=== PATIENT | male | born 1980 | race Two or more races ===

== ENCOUNTER 2024-08-21 10:10 | Day surgery (SDC) | payer MEDICAID, SELFPAY ==
--- NOTE | 2024-08-18 09:13 | EKG_ITS ---
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
[2024-08-18 09:16] VITALS: BMI 35.5
[2024-08-18 09:42] LABS: Collection Type, Urine Clean Catch; Squamous Epithelial Cell,Urine 0 /hpf (0-5)
[2024-08-18 09:54] LABS: Basophils # (Auto) 0.1 Thou/mm3 (0.0-0.2); Basophils % (Auto) 1 % (0-2.5); Eosinophils # (Auto) 0.2 Thou/mm3 (0.0-0.5); Eosinophils % (Auto) 2 % (0-10); Hematocrit 44.7 % (41.0-53.0); Hemoglobin 15.5 g/dL (13.5-16.0); Immature Granulocytes % (Auto) 0 % (0-0); Immature Granulocytes Auto 0.01 Thou/mm3 (0.00-0.00); Lymphocytes # (Auto) 3.5 Thou/mm3 (1.0-4.8); Lymphocytes % (Auto) 46 % (10-50); Mean Corpuscular HGB Conc 34.7 g/dl (31.0-37.0); Mean Corpuscular Hemoglobin 28.8 pg (25.0-35.0); Mean Corpuscular Volume 83 fL (80-100); Monocytes # (Auto) 0.7 Thou/mm3 (0.0-0.8); Monocytes % (Auto) 9 % (0-12); Neutrophils # (Auto) 3.1 Thou/mm3 (1.8-7.7); Neutrophils % (Auto) 42 % (37-80); Nucleated Red Blood Cell % 0 /100 WBC (0); Platelet Count 288 Thou/mm3 (140-440); RDW Standard Deviation 41.8 fL (35.1-43.9); Red Blood Count 5.39 Miln/mm3 (4.50-5.90); White Blood Count 7.5 Thou/mm3 (3.8-10.6)
[2024-08-18 09:59] LABS: Bilirubin,Urine Negative (Negative); Blood,Urine 1+ (Negative); Clarity,Urine Clear (Clear/Hazy); Color,Urine Lt-Yellow (Lt Yel-Yel); Glucose, Urine Negative (Negative); Ketones,Urine Negative (Negative); Leukocyte Esterase,Urine Negative (Negative); Nitrite,Urine Negative (Negative); PH,Urine 5.5 (5.0-7.0); Protein,Urine Negative (Neg - Trace); RBC,Urine 4 /hpf (0-3); Urobilinogen,Urine Negative mg/dL (0.0-1.0); WBC,Urine 1 /hpf (0-5)
[2024-08-18 10:16] LABS: Alanine Aminotransferase 42 U/L (10-49); Albumin, Serum 4.7 gm/dL (3.5-5.0); Albumin/Globulin Ratio 1.8 (1.2-2.2); Alkaline Phosphatase 64 U/L (46-116); Anion Gap 9 (7-16); Aspartate Amino Transferase 26 U/L (0-34); BUN/Creatinine Ratio 15 Ratio (12-20); Bilirubin,Total 0.5 mg/dL (0.3-1.2); Blood Urea Nitrogen 12 mg/dL (9-23); Calcium 9.2 mg/dL (8.3-10.6); Calcium (Corrected) 9.2 mg/dL (8.5-10.1); Carbon Dioxide 28.5 mMol/L (20.0-31.0); Chloride 104 mMol/L (98-107); Creatinine (Component) 0.8 mg/dL (0.6-1.3); Estimated Creatinine Clearance 149.5 mL/min (>60); Globulin 2.6 gm/dL (2.3-3.5); Glucose 107 mg/dL (74-106); Osmolality,Calculated 280 (275-295); Potassium 4.1 mMol/L (3.4-5.1); Sodium 141 mMol/L (136-145); Total Protein 7.3 gm/dL (5.7-8.2); eGFR > 60 See Note
[2024-08-21] VITALS (7 sets, daily range): BP systolic 120–169; BP diastolic 70–100; PULSE 76–102; RESP 14–20; TEMP 36.2–36.6; O2SAT 97–100; BMI 35.4
--- NOTE | 2024-08-21 12:49 | SUR.PHASEI ---
pt received from OR in recovery bay 1. pt obtunded, breathing unlabored on oxymask 8l, oral airway in place. v/s stable. pt dressing to right neck cdi. report received from Jagruti Lee RN.
--- NOTE | 2024-08-21 13:04 | PD.SUROPNT ---
Date of Procedure 08/21/24 Pre Op Diagnosis Large lipoma right occipital region and lipoma right neck. Post Op Diagnosis Same. Procedure 1.excision of large lipoma of the right occipital region. August 21, 2024 2.excision of lipoma right neck. August 21, 2024 Findings There is a large lipoma in the right occipital region measuring about 7 cm there is a below the fascia. This is quite vascular and requires hemostasis with suture ligation. There is another lipoma in the right neck near the sternocleidomastoid and this was superficial to the 11th nerve. XI nerve was protected Procedure Description The patient was interviewed in the preop area and the site and side were marked. Then patient was taken to the operating room and general anesthesia is administered in a satisfactory manner. A timeout procedure is carried out. Patient is positioned in the left side down lateral position scalp and hair is all shaved and prepped and draped in usual manner. Local anesthesia 1% lidocaine with epinephrine is used and at first the occipital region lipoma is removed. Curvilinear transverse incision is made and deepened through the layers of skin and subcutaneous tissue. Incision is extended as needed. There is a large lipoma and this was dissected and removed. The fascia and muscle was involved. There was an occipital artery which was bleeding that required suture ligation. After removal of the lipoma the flaps were examined and there is mild oozing the hemostasis is achieved. After complete hemostasis is achieved the operative field is thoroughly irrigated with saline solution and then the fascia is approximated by through 2-0 Vicryl interrupted sutures. The skin is closed using 2-0 nylon interrupted sutures. Now the attention is diverted to the right neck mass. This was identified by palpation and local anesthesia was infiltrated. The mass is localized. Local anesthesia 1% lidocaine with epinephrine is used. Curvilinear transverse incision is made on the most prominent area of the mass. The mass is removed in its entirety. Appears to be a lipoma. The spinal accessory nerve is noted in the base of the lipoma and this was protected. Hemostasis is achieved. The fascia is approximated by 3-0 Vicryl interrupted sutures skin by 2-0 nylon interrupted sutures. Sterile dressings were applied. Patient tolerated procedure very well and transferred to the recovery room in a satisfactory condition. Anesthesia GETA Drains None. Implants None. Pathology / specimen Other (Lipoma right occipital region and lipoma right neck.) Estimated Blood Loss 10 Condition Stable Disposition PACU Surgeon Toney Victoria MD Surgical Staff Operation Date: 08/21/24 11:00 Case Staff Anesthesiologist: Curt Garcia echocardiography radiology technologist here Senior is a surgical orderly student Luis A RN shake maker
--- NOTE | 2024-08-21 13:14 | SUR.PHASEI ---
pt able to tolerate oral fluids without difficulty swallowing or nausea/vomiting.
[2024-08-21] MEDS: fentaNYL CIT INJ 50 mCg/ML AMP 2ML 25 MCG IVP (13:21)
--- NOTE | 2024-08-21 13:51 | SUR.PHASEII ---
pt awake and alert, breathing unlabored on room air. v/s stable. pt dressing to right neck cdi. pt able to ambulate to wheelchair with steady gait. d/c instructions given with partner Kathie in room, all questions answered. pt d/c via wheelchair with all belongings.
== END 2024-08-21 13:51 | disposition home or self-care (01) ==
PROVIDERS: PCP Physician Assistant; Referring Provider Specialist; Visit Provider Specialist
PROC: (CPT 21012; principal; 2024-08-21 10:45)
DX: D17.0 Benign lipomatous neoplasm of skin and subcutaneous tissue of head, face and neck (principal); Z01.810 Encounter for preprocedural cardiovascular examination
CPT/HCPCS: 21012; 21552; 36415; 80053; 81001; 85025; 85730; 93005; A4217; A4649; J0131; J1100; J2250; J2405; J2704; J3010; J3490; J0665

== ENCOUNTER 2024-11-21 12:10 | Day surgery (SDC) | payer MEDICAID, SELFPAY ==
[2024-11-21] VITALS (11 sets, daily range): BP systolic 129–147; BP diastolic 88–101; PULSE 74–92; RESP 15–24; TEMP 36.4–36.8; O2SAT 92–100; BMI 34.5
[2024-11-21] MEDS: RINGERS LACTATED 1000 ML 1,000 ML 60 ML IV (15:02)
[2024-11-21] MEDS: ONDANSETRON INJ 2 MG/ML INJ 2 ML 4 MG IVP (15:22)
--- NOTE | 2024-11-21 15:51 | SUR.PHASEII ---
1538: Pt received in [facility] via [employer]. Report from Jacqueline BOYD. Pt sleepy. Is arousable then immediately drifts back to sleep. No c/o pain, discomfort.
--- NOTE | 2024-11-21 16:51 | SUR.PHASEII ---
1610: Pt more awake, alert. VS stable. Pt able to remain awake. Resp even, unlabored. VS stable. Denies pain. Sitting up tolerating po fluids with no difficulty swallowing and no n/v. 1635: Pt fully awake, oriented x3. Pt dressed and assisted to transport chair. Ambulation steady. Pt requested girlfriend interpret for him. Both stated understanding of discharge instructions. Pt discharged from [facility] in stable condition.
== END 2024-11-21 16:35 | disposition home or self-care (01) ==
PROVIDERS: PCP Physician Assistant; Referring Provider Specialist; Visit Provider Specialist
PROC: (CPT 43239; principal; 2024-11-21 14:30)
DX: K21.00 Gastro-esophageal reflux disease with esophagitis, without bleeding (principal); K44.9 Diaphragmatic hernia without obstruction or gangrene
CPT/HCPCS: 43235; A4649; J1200; J2250; J2405; J3010; J7120; A9270

== ENCOUNTER 2025-02-19 09:05 | Day surgery (SDC) | payer MEDICAID, SELFPAY ==
[2025-02-13 11:01] VITALS: BMI 35.5
[2025-02-13 11:26] LABS: Collection Type, Urine Clean Catch; Squamous Epithelial Cell,Urine 0 /hpf (0-5)
[2025-02-13 11:47] LABS: Basophils # (Auto) 0.1 Thou/mm3 (0.0-0.2); Basophils % (Auto) 1 % (0-2.5); Eosinophils # (Auto) 0.2 Thou/mm3 (0.0-0.5); Eosinophils % (Auto) 3 % (0-10); Hematocrit 46.1 % (41.0-53.0); Hemoglobin 15.2 g/dL (13.5-16.0); Immature Granulocytes Auto 0.02 Thou/mm3 (0.00-0.00); Lymphocytes # (Auto) 3.7 Thou/mm3 (1.0-4.8); Lymphocytes % (Auto) 46 % (10-50); Mean Corpuscular HGB Conc 33.0 g/dl (31.0-37.0); Mean Corpuscular Hemoglobin 28.4 pg (25.0-35.0); Mean Corpuscular Volume 86 fL (80-100); Monocytes # (Auto) 0.8 Thou/mm3 (0.0-0.8); Monocytes % (Auto) 10 % (0-12); Neutrophils # (Auto) 3.2 Thou/mm3 (1.8-7.7); Neutrophils % (Auto) 40 % (37-80); Nucleated Red Blood Cell # 0.00 Thou/mm3 (0.00-0.00); Nucleated Red Blood Cell % 0 /100 WBC (0); Platelet Count 280 Thou/mm3 (140-440); RDW Standard Deviation 43.1 fL (35.1-43.9); Red Blood Count 5.35 Miln/mm3 (4.50-5.90); White Blood Count 8.0 Thou/mm3 (3.8-10.6)
[2025-02-13 11:58] LABS: Amorphous Crystals,Urine Present (Absent); Bilirubin,Urine Negative (Negative); Blood,Urine Negative (Negative); Color,Urine Yellow (Lt Yel-Yel); Glucose, Urine Negative (Negative); Ketones,Urine Negative (Negative); Leukocyte Esterase,Urine Negative (Negative); Nitrite,Urine Negative (Negative); PH,Urine 8.0 (5.0-7.0); Protein,Urine Trace (Neg - Trace); RBC,Urine 17 /hpf (0-3); Specific Gravity,Urine 1.027 (1.001-1.035); Urobilinogen,Urine Negative mg/dL (0.0-1.0); WBC,Urine 9 /hpf (0-5)
[2025-02-13 11:59] LABS: Partial Thromboplastin Time 31.0 Seconds (22.0-36.0)
[2025-02-13 12:29] LABS: Alanine Aminotransferase 36 U/L (10-49); Albumin, Serum 4.9 gm/dL (3.5-5.0); Albumin/Globulin Ratio 1.8 (1.2-2.2); Anion Gap 10 (7-16); Aspartate Amino Transferase 28 U/L (0-34); BUN/Creatinine Ratio 12 Ratio (12-20); Bilirubin,Total 0.5 mg/dL (0.3-1.2); Blood Urea Nitrogen 12 mg/dL (9-23); Calcium 10.1 mg/dL (8.3-10.6); Calcium (Corrected) 10.1 mg/dL (8.5-10.1); Carbon Dioxide 26.9 mMol/L (20.0-31.0); Chloride 105 mMol/L (98-107); Creatinine (Component) 1.0 mg/dL (0.6-1.3); Estimated Creatinine Clearance 119.5 mL/min (>60); Globulin 2.7 gm/dL (2.3-3.5); Glucose 94 mg/dL (74-106); Osmolality,Calculated 282 (275-295); Potassium 4.3 mMol/L (3.4-5.1); Sodium 142 mMol/L (136-145); Total Protein 7.6 gm/dL (5.7-8.2); eGFR > 60 See Note
[2025-02-13 12:47] LABS: Alkaline Phosphatase 67 U/L (46-116)
[2025-02-13 12:52] LABS: Clarity,Urine Hazy (Clear/Hazy)
[2025-02-19] VITALS (7 sets, daily range): BP systolic 101–151; BP diastolic 55–95; PULSE 77–99; RESP 16–20; TEMP 36.2–36.5; O2SAT 95–99; BMI 36.5
[2025-02-19] MEDS: RINGERS LACTATED 1000 ML 1,000 ML 60 ML IV (09:50)
--- NOTE | 2025-02-19 09:54 | SUR.PREOP ---
Patient expressed gratitude for prayer before their procedure.
--- NOTE | 2025-02-19 13:58 | SUR.PHASEI ---
pt received from OR in recovery bay 1. pt obtunded, breathing unlabored on oxymask 10l, oral airway in place. v/s stable. pt dressing to lower right abd cdi. report received from Dr. Hirsch and Yanet BOYD.
--- NOTE | 2025-02-19 14:08 | PD.SUROPNT ---
Date of Procedure 02/19/25 Pre Op Diagnosis Right inguinal hernia Post Op Diagnosis Same Procedure Repair of right inguinal hernia with removal of the lipoma of the cord. On February 19, 2025 Findings This patient is markedly obese and he had right direct inguinal hernia there was a small lipoma of the cord that was removed. Procedure Description Patient was examined in the preop area. Site and site were marked. Procedure was discussed with the patient in detail. The risk benefits alternatives were discussed with the patient and informed consent was obtained. The risks include bleeding infection recurrence of the hernia testicular atrophy and anesthesia related risks. The patient was brought to the operating room and placed on the operating table in supine position. General anesthesia was administered in a satisfactory manner. IV antibiotics were given to the patient. Local anesthesia 0.25% Marcaine was used as an adjunct. Curvilinear oblique incision is made in the right groin. This was deepened through the layers of skin subcutaneous tissue and Margy's fascia. The superficial inferior epigastric veins were ligated and divided. Hemostasis was achieved. The hernia protrusion is quite large and extending out to from the external ring. External oblique aponeurosis was cleared and the external ring was defined. The shelving edge of the inguinal ligament was defined externally. A longitudinal incision was made in the external oblique aponeurosis. The inguinal canal was opened. The ilioinguinal nerve was protected. Upper and lower flaps of the external oblique aponeurosis were dissected away from the hernia sac. This was retracted with a self-retaining retractor. The cremaster muscle was incised and the hernia sac was identified. Hernia sac was gently dissected circumferentially at the neck. The spermatic vessels were identified and they were protected. There was a direct inguinal hernia through the Hesselbach's triangle. There was a protruding sac. After the sac was from the cord structures it was examined and this showed there is a direct inguinal hernia. The hernia was approached posteriorly and the hernia was reduced en helena. There was no tight hernia ring. A lipoma of the spermatic cord was noted to be extending from the internal ring and this was dissected from the cord structures and was removed after suture ligating the neck. The posterior wall of the inguinal canal was then examined. The conjoined tendon was defined. The posterior wall was repaired with interrupted 0 Ethibond interrupted sutures. This was approximating the the shelving edge of the inguinal ligament with the conjoined tendon and fascia transversalis. The first suture is passing through the periosteum of the pubic tubercle. The second suture was passing through the Tutu's ligament. Rest of them passing through the shelving edge of the inguinal ligament, fascia transversalis and conjoined tendon. Internal ring was tightened. Enough space was left around the spermatic cord so as to avoid constriction at the internal ring. After the repair was completed, a releasing incision was made in the internal oblique underneath the external oblique and rectus sheath. Operative field is thoroughly irrigated with saline solution and hemostasis is again achieved. The spermatic cord and ilioinguinal nerve placed back into the inguinal canal. External oblique aponeurosis is approximated by 3-0 PDS continuous suture. Subcutaneous tissues approximated by 3-0 Vicryl interrupted sutures and skin is approximated by 4-0 Monocryl subcuticular stitches. Steri-Strips were applied. Patient tolerated procedure very well. Complications none. Anesthesia GETA Drains None. Implants None. Pathology / specimen None Estimated Blood Loss 5 Condition Stable Disposition PACU Surgeon Toney Victoria MD Surgical Staff Operation Date: 02/19/25 11:15 Case Staff Anesthesiologist: Kavon Hirsch RN First Assistant: Felisa Rudd surgical pathologist Yanet BOYD licensed plumber
--- NOTE | 2025-02-19 14:24 | SUR.PHASEI ---
pt able to tolerate oral fluids without difficulty swallowing or nausea/vomiting.
--- NOTE | 2025-02-19 15:04 | SUR.PHASEII ---
pt awake and alert, breathing unlabored on room air. v/s stable. pt dressing to lower right abd cdi. pt able to ambulate to wheelchair with steady gait. d/c instructions given with s/o Kathie in room, all questions answered. pt d/c via wheelchair with all belongings.
== END 2025-02-19 15:04 | disposition home or self-care (01) ==
PROVIDERS: PCP Physician Assistant; Referring Provider Specialist; Visit Provider Specialist
PROC: (CPT 49505; principal; 2025-02-19 11:00)
DX: K40.90 Unilateral inguinal hernia, without obstruction or gangrene, not specified as recurrent (principal); D17.6 Benign lipomatous neoplasm of spermatic cord; E66.9 Obesity, unspecified; Z68.36 Body mass index [BMI] 36.0-36.9, adult
CPT/HCPCS: 49505; 55520; 36415; 80053; 81001; 85025; 85730; A4649; J0131; J0690; J1100; J1580; J1885; J2250; J2405; J2704; J3010; J3490; J7120